=== PATIENT | female | born 1960 | race African-American/Black ===

== ENCOUNTER 2024-10-30 17:30 | Emergency (ER) | payer MEDICARE ==
[~2024-10-30] VITALS: Ht 170.2 cm; Wt 75.0 kg
[2024-10-30 17:36] VITALS: BP 107/68; PULSE 65; RESP 18; TEMP 37.1; O2SAT 99
[2024-10-30] MEDS: TRAMADOL 50MG TABLET PO ONE (19:00)
[2024-10-30] MEDS: IBUPROFEN 600MG TABLET PO ONE (19:21)
[2024-10-30] MEDS ORDERED: IBUP-2029 MT (21:23)
== END 2024-10-30 22:43 | disposition home or self-care (01) ==
LOC: ER 17:30
DX: S80.02XA Contusion of left knee, initial encounter (principal); S80.01XA Contusion of right knee, initial encounter; S63.8X1A Sprain of other part of right wrist and hand, initial encounter; S43.491A Other sprain of right shoulder joint, initial encounter; I10 Essential (primary) hypertension; J45.909 Unspecified asthma, uncomplicated; M18.11 Unilateral primary osteoarthritis of first carpometacarpal joint, right hand; Z88.2 Allergy status to sulfonamides; X58.XXXA Exposure to other specified factors, initial encounter; Y93.89 Activity, other specified; Y92.89 Other specified places as the place of occurrence of the external cause; Y99.8 Other external cause status
CPT/HCPCS: 73030; 73120; 73560; 99284